=== PATIENT | male | born 1975 | race Caucasian/White ===

== ENCOUNTER 2021-07-17 10:33 | Emergency (ER) | payer MEDICARE ==
[2021-07-17 11:50] LABS: BASOPHIL 0.2 % (0-2); EOSINOPHIL 0 % (0-5); HCT 43.1 % (42.0-52.0); HGB 15.1 g/dl (13.2-18.0); LYMPHOCYTE 6.4 % (15-48); MCH 32.3 pg (25.0-31.0); MCV 92.1 fL (78.0-100.0); MONOCYTE 3.1 % (0-12); MPV 10.3 fL (6.0-9.5); NRBC 0; PLT 175 K/uL (150-400); RBC 4.68 M/uL (4.70-6.00); RDW 12.5 % (11.5-14.0); WBC 13.1 K/uL (4.0-10.5)
[2021-07-17 11:51] LABS: NEUTROPHIL 89.9 % (41-80)
[2021-07-17 11:56] LABS: BUN/CREAT RATIO (CALC) 17.9 RATIO; CREATININE 0.84 mg/dL (0.67-1.17); POTASSIUM 3.8 mmol/L (3.5-5.1)
[2021-07-17] MEDS ORDERED: AZITHROMYCIN250 MG PO (15:07)
== END 2021-07-17 15:15 | disposition home or self-care (01) ==
LOC: FER 10:33
PROVIDERS: Emergency Medicine
DX: J18.9 Pneumonia, unspecified organism (principal); Z20.822 Contact with and (suspected) exposure to COVID-19; Z28.310 Unvaccinated for COVID-19
CPT/HCPCS: 36415; 71046; 80048; 84484; 85025; 87040; 93005; U0002